=== PATIENT | male | born 1985 | race Caucasian/White ===

== ENCOUNTER 2018-09-16 15:16 | Inpatient (IN) | payer SELFPAY ==
[~2018-09-16] VITALS: Ht 175.3 cm; Wt 65.8 kg
--- NOTE | 2018-09-16 15:17 | NUR ---
PATIENT BIBA TO BED 7 AT THIS TIME.
[2018-09-16 15:22] VITALS: BP 141/74
[2018-09-16] MEDS ORDERED: NACL 0.9% 1,000 ML IV ONE ×2 (15:30→19:10)
--- NOTE | 2018-09-16 15:32 | NUR ---
PT. BIB ALS DUE TO CP X 30 MIN INTERMITTENT. PT STATES " I CARRIED A HEAVY BOX AND AFTER CARRYING THAT BOX MY CHEST STARTED HURTING IT WAS A TINGLING FEELING, BUT NOW IT IS BETTER". 5/10 CHEST PAIN STERNAL THAT IS NON RADIAITING. DENIES ANY N/V/D. DENIES ANY SOB, WARM AND DRY TO TOUCH. RR EVEN AND UNLABORED. ABLE TO SPEAK IN FULL AND COMPLETE SENTENCES. PT ARRIVED WITH L AC 18G ESTABLISHED BY ALS CREW. DORIS JOSHUA MADE AWARE. SAFETY PRECAUTIONS IMPLEMENTED. WILL CONTINUE TO MONITOR.
[2018-09-16 15:46] LABS: BASOPHILS % (AUTO) 0.4 % (0.0-2.0); EOSINOPHILS % (AUTO) 0.5 % (0.0-4.0); HEMATOCRIT 44.1 % (36-52); HEMOGLOBIN 14.5 g/dL (12.0-18.0); LYMPHOCYTES # (AUTO) 1.8 K/uL (2.0-11.5); LYMPHOCYTES % (AUTO) 17.6 % (20.5-51.1); MEAN CORPUSCULAR HEMOGLOBIN 30 pg (27-31); MEAN CORPUSCULAR HGB CONC 33 g/dL (33-37); MEAN CORPUSCULAR VOLUME 90.6 fL (80-94); MONOCYTES # (AUTO) 0.7 K/uL (0.8-1.0); MONOCYTES % (AUTO) 6.7 % (1.7-9.3); NEUTROPHILS # (AUTO) 7.7 K/uL (1.8-7.7); NEUTROPHILS % (AUTO) 74.8 % (42.2-75.2); PLATELET COUNT (AUTO) 324 K/uL (140-450); RED BLOOD CELL COUNT(AUTO) 4.87 MIL/uL (4.20-6.10); RED CELL DISTRIBUTION WIDTH 13.7 % (11.6-13.7); WHITE BLOOD COUNT (AUTO) 10.3 K/uL (4.8-10.8)
[2018-09-16 16:02] LABS: ANION GAP 14.2 (8-16); CARBON DIOXIDE 26.9 mmol/L (21-32); CREATININE 0.9 mg/dL (0.7-1.3); POTASSIUM 3.1 mmol/L (3.5-5.1)
[2018-09-16 16:17] LABS: ALBUMIN 3.5 g/dL (3.4-5.0); THYROID STIMULATING HORMONE 1.37 uIU/mL (0.34-3.74); TOTAL BILIRUBIN 0.4 mg/dL (0.0-1.0)
[2018-09-16] MEDS ORDERED: POTASSIUM CHLORIDE 10 MEQ TABER PO ONE (16:30)
--- NOTE | 2018-09-16 16:40 | NUR ---
PT. RESTING COMFORTABLY IN BED, RR EVEN AND UNLABORED. PT. HAS PALE APPEARANCE. ER MD MADE AWARE. PT. DENIES ANY DIZZYNESS OR NAUSEA AT THIS TIME.
--- NOTE | 2018-09-16 17:00 | NUR ---
PT. TAKEN TO CT AT THIS TIME VIA ROXY BY SALES INCENTIVE ANALYST
--- NOTE | 2018-09-16 17:15 | NUR ---
PT BACK IN FROM FROM CT.
--- NOTE | 2018-09-16 17:59 | NUR ---
PT. RESTING COMFORTABLY IN BED , RR EVEN AND UNLABORED. WILL CONTINUE TO MONITOR. HOB ELEVATED.
--- NOTE | 2018-09-16 18:48 | NUR ---
PT. RESTING COMFORTABLY IN BED, RR EVEN AND UNLABORED. HOB ELEVATED. PT. STATES " I FEEL BETTER". ER MADE AWARE.
[2018-09-16] MEDS ORDERED: ASPIRIN 325 MG TAB PO ONE (19:00)
--- NOTE | 2018-09-16 19:05 | NUR ---
Pt report given to FRANCESCA KURTZ . Transfer of care at this time.
--- NOTE | 2018-09-16 19:08 | NUR ---
ASSUMED CARE OF PT FROM FRANCESCA NEFF
[2018-09-16] MEDS ORDERED: ZOLPIDEM 5 MG TAB PO PRN (19:10)
[2018-09-16] MEDS ORDERED: ACETAMINOPHEN 325 MG TAB PO PRN (19:10)
[2018-09-16] MEDS ORDERED: MORPHINE SULFATE 4 MG/ML SYR IVP PRN (19:10)
[2018-09-16] MEDS ORDERED: NITROGLYCERIN 0.4 MG TAB SL PRN (19:10)
[2018-09-16] MEDS ORDERED: LORazepam 2 MG/ML VIAL IM/IVP PRN (19:10)
[2018-09-16] MEDS ORDERED: ONDANSETRON 4 MG/2 ML VIAL IM/IVP PRN (19:10)
[2018-09-16] MEDS ORDERED: DOCUSATE SODIUM 100 MG GELCAP PO PRN (19:10)
[2018-09-16] MEDS ORDERED: HYDROcodone/APAP 5/325 MG 1 TAB TAB PO PRN (19:10)
[2018-09-16 19:30] VITALS: BP 141/70
--- NOTE | 2018-09-16 19:30 | NUR ---
Patient will be admitted to care of DR SALCEDO. Admited to TELE. Will go to room 112-B. Belongings list completed. Report to FRANCESCA TERRELL.
--- NOTE | 2018-09-16 19:30 | NUR ---
REPORT RECEIVED FROM ED NURSE AT BEDSIDE. PT IN STABLE CONDITION. AAOX4. INTRODUCED SELF TO PT. BOARD UPDATED. NO COMPLAINTS OF CHEST PAIN. NO SOB. AFEBRILE. PT POTASSIUM 3.1. 40MEQ GIVEN PO IN ED ALONG WITH 1L BOLUS OF NS. IV SITE L AC 18G RUNNING NS@100ML/HR PATENT AND INTACT. SKIN WARM, DRY, AND INTACT WITH NO OPEN WOUNDS. BED LOCKED IN LOW POSITION. CALL ROSS WITHIN REACH. SAFETY PRECAUTIONS IN PLACE. WILL CONTINUE TO MONITOR.
[2018-09-16] MEDS ORDERED: LISINOPRIL 5 MG TAB PO SCH (20:00)
[2018-09-16] MEDS: NACL 0.9% 1,000 ML IV SCH (20:00)
[2018-09-16] MEDS: METOPROLOL 25 MG TAB PO SCH (20:06)
--- NOTE | 2018-09-16 20:06 | NUR ---
LOPRESSOR, ZOCOR, LISINOPRIL GIVEN PO. PT TOLERATED WELL.
[2018-09-16 20:18] LABS: PROTHROMBIN TIME 10.4 secs (10.8-13.4)
[2018-09-16 20:19] LABS: CHOL/HDL RATIO 2.3 (1-4.5); FREE T4 (FREE THYROXINE) 1.14 ng/dL (0.76-1.46); MAGNESIUM 1.6 mg/dL (1.8-2.4); PHOSPHORUS 1.7 mg/dL (2.5-4.9)
[2018-09-16] MEDS ORDERED: SIMVASTATIN 20 MG TAB PO SCH (21:00)
[2018-09-16] MEDS ORDERED: MAGNESIUM OXIDE 400 MG TAB PO ONE (22:25)
[2018-09-16] MEDS: CALCIUM CARB/VIT-D 500 MG/200 IU 1 TAB PO SCH ×2 (22:40→22:44)
--- NOTE | 2018-09-16 22:44 | NUR ---
PHOS NAK, MAG OXIDE, AND OS LIBIA GIVEN PO. PT TOLERATED WELL.
[2018-09-16] MEDS ORDERED: SODIUM PHOS / POTASSIUM PHOS 1 PKT PDR PO SCH (23:00)
[2018-09-16] MEDS ORDERED: CALCIUM CARB/VIT-D 500 MG/200 IU 1 TAB PO SCH (23:00)
[2018-09-16] MEDS ORDERED: INFLUENZA VIRUS VACCINE QUAD 0.5 ML SYR IMVAC PRN (23:40)
[2018-09-17] VITALS: BP 117/57
--- NOTE | 2018-09-17 01:00 | NUR ---
PT AWAKE AND ALERT. NO S/S OF DISTRESS NOTED.
--- NOTE | 2018-09-17 03:15 | NUR ---
PT AWAKE AND WATCHING TV. NO S/S OF DISTRESS NOTED. RESPIRATIONS EVEN, UNLABORED, AND WNL. WILL CONTINUE TO MONITOR.
[2018-09-17 04:00] VITALS: BP 109/56
--- NOTE | 2018-09-17 04:30 | NUR ---
PT AWAKE AND ALERT TRYING TO SLEEP. NO S/S OF DISTRESS NOTED. ALL NEEDS MET AT THIS TIME.
[2018-09-17] MEDS: NACL 0.9% 1,000 ML IV SCH (05:33)
--- NOTE | 2018-09-17 07:15 | NUR ---
REPORT GIVEN TO AM NURSE AT BEDSIDE. PT IN STABLE CONDITION.
[2018-09-17] MEDS ORDERED: MORPHINE SULFATE 4 MG/ML SYR IVP PRN (07:17)
--- NOTE | 2018-09-17 07:20 | NUR ---
REPORT RECEIVED FROM MANAGER OF PRODUCT NURSE, PT AWAKE ALERT RESP EVEN UNLABORED, SKIN WARM DRY COLOR WNL, DENIES CHEST PAIN OR OTHER DISCOMFORT, POC REVIEWED, ALL SAFETY MEASURES IN PLACE, WILL CONTINUE TO MONTIOR.
[2018-09-17 08:00] VITALS: BP 124/56
--- NOTE | 2018-09-17 08:20 | NUR ---
AM MEDS GIVEN, BP MEDS HELD FOR DBP <60, FAMILY AT BEDSIDE, TANK BREAKFAST WELL, DENIES PAIN OR DISCOMFORT OR OTHER NEEDS.
[2018-09-17] MEDS: CALCIUM CARB/VIT-D 500 MG/200 IU 1 TAB PO SCH (08:23)
[2018-09-17] MEDS: METOPROLOL 25 MG TAB PO SCH (08:25)
--- NOTE | 2018-09-17 08:25 | NUR ---
PATIENT HAS BEEN SCREENED AND CATEGORIZED MODERATE NUTRITION RISK. PATIENT WILL BE SEEN WITHIN 3-5 DAYS OF ADMISSION. 09/19/18 09/21/[address]
[2018-09-17] MEDS ORDERED: RANI-485 PO (08:28)
[2018-09-17] MEDS ORDERED: LISINOPRIL 5 MG TAB PO SCH (09:00)
[2018-09-17] MEDS ORDERED: ASPIRIN 81 MG TAB.CHEW PO SCH (09:00)
[2018-09-17 09:32] LABS: BASOPHILS # (AUTO) 0.1 K/uL (0.00-0.22); BASOPHILS % (AUTO) 0.8 % (0.0-2.0); EOSINOPHILS # (AUTO) 0.1 K/uL (0-0.4); EOSINOPHILS % (AUTO) 0.8 % (0.0-4.0); HEMATOCRIT 46.4 % (36-52); HEMOGLOBIN 15.4 g/dL (12.0-18.0); LYMPHOCYTES # (AUTO) 1.6 K/uL (2.0-11.5); LYMPHOCYTES % (AUTO) 20.9 % (20.5-51.1); MEAN CORPUSCULAR HEMOGLOBIN 31 pg (27-31); MEAN CORPUSCULAR HGB CONC 33 g/dL (33-37); MEAN CORPUSCULAR VOLUME 92.3 fL (80-94); MONOCYTES # (AUTO) 0.4 K/uL (0.8-1.0); NEUTROPHILS # (AUTO) 5.4 K/uL (1.8-7.7); NEUTROPHILS % (AUTO) 72.5 % (42.2-75.2); PLATELET COUNT (AUTO) 346 K/uL (140-450); RED BLOOD CELL COUNT(AUTO) 5.03 MIL/uL (4.20-6.10); RED CELL DISTRIBUTION WIDTH 13.8 % (11.6-13.7); WHITE BLOOD COUNT (AUTO) 7.4 K/uL (4.8-10.8)
[2018-09-17 10:01] LABS: POTASSIUM 3.9 mmol/L (3.5-5.1)
[2018-09-17 10:02] LABS: ANION GAP 12.4 (8-16); CARBON DIOXIDE 27.5 mmol/L (21-32); CREATININE 0.7 mg/dL (0.7-1.3)
[2018-09-17 10:03] LABS: MAGNESIUM 2.2 mg/dL (1.8-2.4); PHOSPHORUS 2.1 mg/dL (2.5-4.9)
--- NOTE | 2018-09-17 11:36 | NUR ---
DC INSTRUCTION AND RX INFO GIVEN AND EXPLAINED TO PT, PT VERBALIZED FULL UNDERSTANDING, PT AAOX4, DENIES CHEST PAIN OR OTHER DISCOMFORT, RESP EVEN UNLABORED, GETS UP OUT OF BED WITHOUT PROBLEM, AMBULATES WITH STEADY GAIT, DC HOME NOW WITH FAMILY.
[2019-09-17] MEDS ORDERED: SODIUM PHOS / POTASSIUM PHOS 1 PKT PDR PO SCH (07:30)
== END 2018-09-17 11:40 | disposition home or self-care (01) | DRG 206 ==
LOC: MED 15:16 → MTU 19:10
PROVIDERS: ADMIT General Practice; ATTEND General Practice
DX: M94.0 Chondrocostal junction syndrome [Tietze] (principal); K21.9 Gastro-esophageal reflux disease without esophagitis; I10 Essential (primary) hypertension; E04.1 Nontoxic single thyroid nodule; E87.6 Hypokalemia; E83.39 Other disorders of phosphorus metabolism; E83.42 Hypomagnesemia
CPT/HCPCS: 36415; 71045; 71275; 80048; 80053; 82150; 83036; 83690; 83735; 83880; 84100; 84439; 84443; 84484; 85025; 85610; 85730; 87081; 93005; 96360; 99285; J7030; Q0092; Q9967